=== PATIENT | female | born 2005 | race Caucasian/White ===

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

== ENCOUNTER 2025-10-25 11:38 | Emergency (ER) | payer BC, SELFPAY ==
--- OUTSIDE RECORDS SUMMARY | 2025-10-25 11:41 | XMS_ITS | Clinical Summary ---
Author Organization [facility] Address [address] [place] [id number] Care Team Providers Care Nurse First Assist Name Role Phone dA Alvarado MD, Joe Primary Care Provider [phone] Allergies No known active allergies Medications escitalopram 20 MG tablet Take 20 mg by mouth daily. 04/20/2021 Active VYVANSE 50 MG capsule 06/08/2021 Active norethindrone 5 MG tablet Take 5 mg by mouth daily. 05/17/2021 Active Family History Medical History Relation Comments No Known Problems Father No Known Problems Mother Relation Status Comments Father Alive Mother Alive Social History Tobacco Use Types Packs/Day Years Used Date Smoking Tobacco: Never Smokeless Tobacco: Never Alcohol Use Standard Drinks/Week Comments Not Currently 0 (1 standard drink = 0.6 oz pur e alcohol) Comments No Sex and Gender Information Value Date Recorded Sex Assigned at Not on file Legal Sex Female 7:52 PM CDT Gender Identity Not on file Sexual Orientation Not on file Last Filed Vital Signs Vital Sign Reading Time Taken Comments Blood Pressure 128/78 06/23/2021 8:00 PM CDT Pulse 103 06/23/2021 8:00 PM CDT Temperature 36.3 C (97.3 F) 06/23/2021 8:00 PM CDT Respiratory Rate 20 06/23/2021 8:00 PM CDT Oxygen Saturation 96% 06/23/2021 8:00 PM CDT Inhaled Oxygen Concentration - - Weight 98.9 kg (218 lb) 06/23/2021 8:00 PM CDT Height 160 cm (5' 3) 06/23/2021 8:00 PM CDT Body Mass Index 38.62 06/23/2021 8:00 PM CDT Plan of Treatment Health Maintenance Due Date Last Done Comments Annual Physical 2008 HPV Vaccines (1 - 3-dose series) 2020 Meningococcal B Vaccine (1 o f 2 - Standard) 2021 Hepatitis C 2023 DTaP, Tdap and Td Vaccines ( 1 - Tdap) 2024 Hepatitis B Vaccines (1 of 3 - 19+ 3-dose series) 2024 COVID-19 Vaccine (3 - 2024-2 6 season) 2025 05/23/2021, 04/14/2021 Influenza Adult (#1) 2025 Hepatitis A Vaccines Aged Out No long er eligible based on patient's age to complete this topic Meningococcal Vaccine Aged Out No ashlyn reina eligible based on patient's age to complete this topic Pneumococcal Vaccine: Pediatrics (0 to 5 Years) and At-Risk Patients (6 to 49 Years) Aged Out No longer eligible b ased on patient's age to complete this topic RSV Immunizations Under 20 Months Aged Out No longer eligible b ased on patient's age to complete this topic Insurance [facility] [place] [address] [facility] Care Teams Nurse First Assist Relationship Specialty Start Date End Date Joe Duong MD [address] [facility] [address] [place] [id number] PCP - General PEDIATRICS 06/23/21
--- OUTSIDE RECORDS SUMMARY | 2025-10-25 11:41 | XMS_ITS | Clinical Summary ---
Author Organization [facility] Address [address] [place] [address] Care Team Providers Care Motor Vehicle Or Caravan Salesperson Name Role Phone Liz Hill Primary Care Provider [phone] Allergies Active Allergy Reactions Criticality Noted Date Comments Lactose Diarrhea,Vomiting Low 07/25/2019 Medications hydrOXYzine (ATARAX) 10 mg tablet Take 3 tablets (30 mg total) by mouth daily 2 Active sertraline (ZOLOFT) 100 mg tablet Take 2 tablets (200 mg total) by mouth daily 2 Active prazosin (MINIPRESS) 2 mg capsule Take 1 capsule (2 mg total) by mouth nightly Active atomoxetine (STRATTERA) 25 mg capsule Take 1 capsule (25 mg total) by mouth daily 4 Active UNABLE TO FIND Take 1 each by mouth daily 1Med Name: OLIVER Multi Pro Active ferrous sulfate 325 mg (65 mg of elemental iron) tablet TAKE 1 TABLET BY MOUTH EVERY MORNING EVERY SUNDAY, SUNDAY, SUNDAY MORNINGS 60 tablet 5 Active Additional Information Patient not taking.Reported on 04/28/2025 drospirenone, contraceptive, (Slynd) tablet tabletIndications :Menstrual suppression,Encou nter for surveillance of contraceptive pills Take 1 each (4 mg total) by mouth daily 84 tablet 4 5 Active Active Problems Problem Noted Date Diagnosed Date Microcytic anemia 08/18/2024 Assessment & Plan (08/18/2024 2:54 PM CDT): Chronic. Patient unaware of diagnosis. Possible etiologies include iron- deficiency anemia, other. She does not have menstrual cycles currently. - iron studies ordered, further management pending results Attention deficit hyperactiv ity disorder (ADHD), predominantly inattentive type 08/18/2024 Assessment & Plan (08/18/2024 2:54 PM CDT): Chronic. Continue to follow with psychiatry who manages Strattera. Anxiety and depression 08/18/2024 Assessment & Plan (08/18/2024 2:55 PM CDT): Chronic. Stable. Continue to follow with psychiatry who manages sertraline and hydroxyzine Class 3 severe obesity due t o excess calories without serious comorbidity with body mass index (BMI) of 40.0 to 44.9 in adult 08/18/2024 Assessment & Plan (08/18/2024 2:54 PM CDT): BMI Follow-up includes: exercise counseling. Resolved Problems Problem Noted Date Diagnosed Date Resolved Date Thyroid activity decreased 04/07/2014 0 08/18/2024 Immunizations Immunization Administration Dates Next Due DTaP, Unspecified 05/17/2015,06/27/2014,03/18/20 10 HPV, Unspecified 07/20/2020,05/30/2019 Hep A, Unspecified 07/20/2020,05/30/2019 Hep B, Unspecified 05/23/2016,05/17/2015, 014 Influenza, Quadrivalent, Spl it, Intramuscular 08/30/2022 Influenza, Quadrivalent, Spl it, Preservative Free, Intramuscular 08/27/2023 Influenza, Trivalent, Preser vative Free, Intramuscular 08/18/2024 Influenza, Unspecified 09/02/2021,2019,08/30/2019,08/23 MMR 03/18/2010 MMRV 06/27/2014 Meningococcal ACWY, Unspecified 09/02/2021,05/23 Polio, Unspecified 05/17/2015,06/27/2014, 010 Tdap 05/23/2016 Varicella 03/18/2010 Medical History Medical History Date Comments ADHD (attention deficit hyperactivity disorder) Anxiety Thyroid activity decreased 04/07/2014 Family History Medical History Relation Name Comments Murdered Mother Diabetes Other Hypertension Other Diabetes Paternal Grandfather Lung cancer Paternal Grandmother Relation Name Status Comments Brother 1 Alive Brother 2 Alive Father Unknown Maternal Grandfather Unknown Maternal Grandmother Unknown Mother Other Paternal Grandfather Unknown Paternal Grandmother Unknown Social History Tobacco Use Types Packs/Day Years Used Date Smoking Tobacco: Never Smokeless Tobacco: Never Tobacco Cessation:Counseling Given: Not Answered Alcohol Use Standard Drinks/Week Comments Never 0 (1 standard drink = 0.6 oz pur e alcohol) AUDIT-C Answer Date Recorded Q1: How often do you have a drink containing alcohol? Never 08/18/2024 Q2: How many drinks containi ng alcohol do you have on a typical day when you are drinking? Patient does not drink Q3: How often do you have si x or more drinks on one occasion? Never 08/18/2024 PHQ-2 Answer Date Recorded PHQ-2 Total Score (If total score is 3 or more points, staff should administer the PHQ-9) 2 08/18/2024 PHQ-9 Answer Date Recorded PHQ-9 Total Score 9 08/18/2024 Personal Safety Answer Date Recorded Have you ever been in or are you currently in a harmful physical or emotional relationship or is someone making you feel afraid or unsafe? Denies 06/20/2024 Comments No Sex and Gender Information Value Date Recorded Sex Assigned at Not on file Legal Sex Female 10:52 AM MAT WEAVER Gender Identity Not on file Sexual Orientation Not on file Obstetrics History Para Term AB IAB SAB Ectopic Multiple Livin g Live Births 0 0 0 0 0 0 0 0 0 0 0 Last Filed Vital Signs Vital Sign Reading Time Taken Comments Blood Pressure 123/77 04/28/2025 8:41 AM CDT Pulse 73 04/28/2025 8:41 AM CDT Temperature 36.1 C (97 F) 08/18/2024 12:49 PM CDT Respiratory Rate 16 08/18/2024 12:49 PM CDT Oxygen Saturation 96% 08/18/2024 12:49 PM CDT Inhaled Oxygen Concentration - - Weight 109 kg (240 lb 4.8 oz) 04/28/2025 8:41 AM CDT Height 160 cm (5' 3) 04/28/2025 8:41 AM CDT Body Mass Index 42.57 04/28/2025 8:41 AM CDT Plan of Treatment Health Maintenance Due Date Last Done Comments Chlamydia and Gonorrhea (GC/CT) Screening 2005 Hepatitis C Screening 2005 Meningococcal B Vaccine (1 of 2 - Standard) 2021 Regular Well Visit/Exam 18-64 08/28/2024 08/28/2023 Covid-19 Vaccine ( season) 2025 11/26/2021, 05/23/2021, 04/14/2021 Influenza Vaccine (#1) 2025 , 08/27/2023, 08/30/2022, Additional history exists Depression Screening 08/18/2025 08/18/2024, 08/18/20 24 DTaP/Tdap/Td Vaccine (5 - Td or Tdap) 05/23/2026 05/23/2016, 05/17/2015, 06/27/2014, Additional history exists Varicella Vaccines Completed 06/27/2014, 03/18/2010 Hepatitis B Screening Completed 05/23/2016 , 05/17/2015, 06/27/2014 HPV Vaccines Completed 07/20/2020, 05/30/2019 Meningococcal Vaccine Completed 09/02/2021, 016 Pneumococcal vaccine <65 Aged Out No longer eligible based on patient's age to complete this topic Insurance [facility] Care Teams Motor Vehicle Or Caravan Salesperson Relationship Specialty Start Date End Date Liz Hill [place] [facility] [address] [place] [address] PCP - General Family Medicine 08/18/24
[2025-10-25 11:48] VITALS: BP 147/64; PULSE 56; RESP 16; TEMP 36.7; O2SAT 100
--- NOTE | 2025-10-25 11:58 | ED_ITS ---
HPI - Nausea/Vomiting/Diarrhea General Chief complaint: Nausea/Vomiting/Diarrhea Stated complaint: n/v Time Seen by Provider: 10/25/25 11:45 Source: patient and RN notes reviewed Mode of arrival: ambulatory Limitations: no limitations History of Present Illness HPI Narrative: 20-year-old female presents with concern for nausea, vomiting, stomach ache and diarrhea. She reports she has had symptoms since , so for little over a week. Reports she went to an urgent care yesterday and was given IV fluids and advised to go to the emergency room. Reports she was incontinent of urine on the way to the emergency room so she went home instead. She took Zofran this morning but later vomited. She denies dysuria, frequency, urgency. She reports her low back hurts. MD elicited complaint: nausea, vomiting and diarrhea Related Data Home Medications ?Medication ?Instructions ?Recorded ?Confirmed ?Last Taken ?Type drospirenone (contraceptive) 4 mg 10/25/25 Unknown H istory (28) tablet (Slynd) ondansetron 4 mg disintegrating mg 10/25/25 Unknown H istory tablet sertraline 100 mg tablet mg 10/25/25 Unknown History Allergies Allergy/AdvReac Type Severity Reaction Status Date / Time No Known Allergies Allergy Verified 10/25/25 11:57 Review of Systems Review of Systems: CONSTITUTIONAL: Reports malaise, chills. Denies sweats or fever. ENT: Denies rhinorrhea, congestion, sinus pain, otalgia or sore throat. CARDIOVASCULAR: Denies chest pain, palpitations, or edema. RESPIRATORY: Denies cough or dyspnea. GASTROINTESTINAL: Reports epigastric abdominal pain, nausea, vomiting, diarrhea GENITOURINARY: Denies dysuria or hematuria. MUSCULOSKELETAL: Denies myalgia. Reports low back pain NEUROLOGIC: Denies headache. All systems reviewed & are unremarkable except as noted in HPI and below PMFSH Comments At time of signature, agree with nursing past medical, surgical, social and family history. There is no relevant family history pertinent to the presenting complaint Exam Narrative: GENERAL: Nontoxic-appearing, well-nourished, and in no acute distress. HEAD: Normocephalic, atraumatic. EYES: PERRLA, conjunctivae clear, and EOMI. ENT: Nares clear, turbinates pink, no rhinorrhea or epistaxis. Mucous membranes moist. NECK: Supple. No lymphadenopathy CHEST: Speaks in full sentences. No respiratory distress. HEART: Regular rate and rhythm. ABDOMEN: Obese. Epigastric tenderness. Bowel sounds present in all four quadrants. SKIN: Warm, dry, no rash. NEURO: Alert and oriented x3. PSYCH: Normal mood and affect Course Course Emergency Course: Patient is aware of, understands and agrees to be transferred to the emergency room. Patient agrees to proceed directly to the emergency department. Portions of this record may have been created with voice recognition software Level of Care: [facility] Visit Vital Signs Vital signs: Vital Signs Temperature 98.1 F 10/25/25 11:48 Pulse Rate 56 L 10/25/25 11:48 Respiratory Rate 16 10/25/25 11:48 Blood Pressure 147/64 H 10/25/25 11:48 Pulse Oximetry 100 10/25/25 11:48 Oxygen Delivery Room Air 10/25/25 11:48 Temperature 98.1 F 10/25/25 11:48 Pulse Rate 56 L 10/25/25 11:48 Respiratory Rate 16 10/25/25 11:48 Blood Pressure 147/64 H 10/25/25 11:48 Pulse Oximetry 100 10/25/25 11:48 Oxygen Delivery Room Air 10/25/25 11:48 MDM Differential Diagnosis Differential Diagnosis: I evaluated this patient in the [facility]. History is obtained from patient who is an independent historian and physical exam was performed.? Available medical records were reviewed. ? Exam findings and relevant testing show no acute concerns or changes; patient is non-toxic appearing and is in no distress. ? Differential diagnostic considerations for nausea/vomiting/diarrhea include gastroenteritis, appendicitis, IBD, intestinal obstruction, clostridium difficile, food poisoning, peritonitis, IBS, dehydration, ischemic bowel, ACS, pancreatitis, drug induced nausea/vomiting. Differential diagnosis and treatment plan were discussed with the patient. Patient agrees with discussion and after shared medical decision making agrees with plan of care. All questions were answered to the patient's satisfaction. Patient is appropriate for outpatient treatment and follow-up. Discharge Plan Discharge Clinical Impression: Nausea vomiting and diarrhea Patient Disposition: Acute Care Hospital Condition: Stable Patient Language: Greek Prescriptions: No Action sertraline 100 mg tablet ondansetron 4 mg tablet,disintegrating Slynd 4 mg (28) tablet Follow-up/Referrals: Doll,Donna A., DO [Primary Care Provider, Family Practice] Time of Disposition: 12:18
[2025-10-25] MEDS: ONDANSETRON HCL ODT 4 MG TABLET SUBLINGUAL (12:18)
[2025-10-25 12:19] LABS: BEDSIDEPREGUCG Negative (Negative)
[2025-10-25 12:19] LABS: EDUAAPPEAR Clear; EDUABILI Negative (Negative); EDUABLOOD Negative (Negative); EDUACOLOR1 Yellow; EDUAGLUCOSE Negative (Negative); EDUAKETONE Negative (Negative); EDUALEUKO Negative (Negative); EDUANITRATE Negative (Negative); EDUAPH 6.5; EDUAPROTEIN 2+ (Negative); EDUASPGRAVITY 1.020; EDUAUROBILI 0.2
== END 2025-10-25 12:17 | disposition short-term general hospital (02) ==
PROVIDERS: Emergency Provider Nurse Practitioner; PCP Family Medicine
DX: R11.2 Nausea with vomiting, unspecified (principal); R19.7 Diarrhea, unspecified; F41.9 Anxiety disorder, unspecified; F32.A Depression, unspecified
CPT/HCPCS: 81003; 81025; 99213; A9270; G0463

== ENCOUNTER 2025-10-26 20:48 | Emergency (ER) | payer BC, SELFPAY ==
--- OUTSIDE RECORDS SUMMARY | 2025-10-25 14:01 | XMS_ITS | Encounter Summary ---
Author Organization [facility] Address [address] [place] [address] Care Team Providers Care Provider Relations Coordinator Name Role Phone Ad Alvarado MD, Joe Primary Care Provider [phone] Reason for Referral * Imaging (Emergency) - New Request Specialty Diagnoses / Procedures Referred By Merly pina Referred To Contact RADIOLOGY Procedures CT ABD+PEL W IV CON ONLY Aaron Sánchez NP [address] [place] [address] Phone: tel: fax: Referral ID Status Reason Start Date Expiration Date V isits Requested Visits Authorized [id number] New Request 10/25/2025 10/25/2026 1 1 STANT FARM OPERATIONS MANAGER Reason for Visit * Reason Comments Vomiting Encounter Details Date Type Department Care Team (Late st Contact Info) Description 10/25/2025 2:01 PM ASSISTANT FARM OPERATIONS MANAGER - 10/25/2025 4:12 PM ASSISTANT FARM OPERATIONS MANAGER Emergency [facility] [place] [address] Elías Smith MD [address] [place] [address] Vomiting Discharge Disposition: Home or Self Care (Routine Discharge) Social History Tobacco Use Types Packs/Day Years Used Date Smoking Tobacco: Never Smokeless Tobacco: Never Alcohol Use Standard Drinks/Week Comments Not Currently 0 (1 standard drink = 0.6 oz pur e alcohol) Comments No Sex and Gender Information Value Date Recorded Sex Assigned at Female 10/25/2025 2:23 PM ASSISTANT FARM OPERATIONS MANAGER Legal Sex Female 7:52 PM CDT Gender Identity Not on file Sexual Orientation Not on file documented as of this encounter Last Filed Vital Signs Vital Sign Reading Time Taken Comments Blood Pressure 134/90 10/25/2025 4:00 PM ASSISTANT FARM OPERATIONS MANAGER Pulse 86 10/25/2025 4:00 PM ASSISTANT FARM OPERATIONS MANAGER Temperature 36.8 C (98.3 F) 10/25/2025 12:50 PM ASSISTANT FARM OPERATIONS MANAGER Respiratory Rate 21 10/25/2025 4:00 PM ASSISTANT FARM OPERATIONS MANAGER Oxygen Saturation 97% 10/25/2025 4:00 PM ASSISTANT FARM OPERATIONS MANAGER Inhaled Oxygen Concentration - - Weight 104.9 kg (231 lb 4.2 oz) 025 12:50 PM ASSISTANT FARM OPERATIONS MANAGER Height 157.5 cm (5' 2) 10/25/2025 12:5 0 PM ASSISTANT FARM OPERATIONS MANAGER Body Mass Index 42.3 10/25/2025 12:50 PM ASSISTANT FARM OPERATIONS MANAGER documented in this encounter Functional Status * Calculated C-SSRS Risk Score (Lifetime/Recent) Answer Date of Assessment Author Status No Risk Indicated 10/25/2025 12:52 PM ASSISTANT FARM OPERATIONS MANAGER Sa ra Светлана Herr RN Active * [place] Suicide Severity Rating Scale (Screener/Recent Self-Report) Question Answer Date of Assessment Author Status 1. Wish to be (Past 1 Month) No 10/25/2025 12:52 PM ASSISTANT FARM OPERATIONS MANAGER Kena Herr RN Act hung 2. Non-Specific Active Suicidal Thoughts (Past 1 Month) No 10/25/2025 12:52 PM ASSISTANT FARM OPERATIONS MANAGER Kena Herr RN Act hung 6. Suicidal Behavior (Lifetime) No 10/25/2025 12:52 PM Kena Peguero RN Act hung documented as of this encounter Discharge Instructions * Attachments The following attachments cannot be sent through Care Everywhere. * Nausea and vomiting in adults (Latvian) documented in this encounter Medications at Time of Discharge metoclopramide (REGLAN) 10 MG tablet Take 1 tablet (10 mg total) by mouth 3 (three) times daily as needed (nausea/vomit ing). 30 tablet 10/25/2025 11/04/2025 escitalopram 20 MG tablet Take 20 mg by mouth daily. 04/20/2021 norethindrone 5 MG tablet Take 5 mg by mouth daily. 05/17/2021 VYVANSE 50 MG capsule 06/08/2021 documented as of this encounter ED Notes * Merlyn Shay, Nurse Laundry Route Driver II - 10/25/2025 4:09 PM CST Provider discussed today's findings with the patient/family. The patient has been given informationregarding their treatment, follow up and concerning symptoms for which they should seek urgent or emergent attention. All questions answered. Pt ambulated out of ED with all personal belongings. IV d/c, vitals stable. Cosigned by Ember Miles RN at 10/25/2025 4:12 PM ASSISTANT FARM OPERATIONS MANAGER STANT FARM OPERATIONS MANAGER STANT FARM OPERATIONS MANAGER * Elías Smith MD - 10/25/2025 2:09 PM CSTSummary: ED NOTE Chief Complaint Chief Complaint Patient presents with Vomiting History of Present Illness Patient is a 20-year-old female with a past medical history of anxiety and depression who presents with vomiting. She reports that she has been vomiting since . Patient reports approximately 10 episodes of vomiting per day. She has a burning epigastric pain that is intermittent. Nothingis better or worse. She has chest pain that sharp and feels like the pain is twisting. Nothing makes it better or worse. Has not fevers or chills. No blood in vomit. Does have some diarrhea in the morning. Does use daily marijuana and showers do seem to help with symptoms. Has been seen now twice in urgent care. Medical History ALLERGIES: Review of patient's allergies indicates: No Known Allergies MEDICATIONS: Prior to Admission medications Medication Sig Start Date End Date Taking? Authorizing Provider metoclopramide (REGLAN) 10 MG tablet Take 1 tablet (10 mg total) by mouth 3 (three) times daily as needed (nausea/vomiting). 10/25/25 11/04/25 Yes Elías Smith MD escitalopram 20 MG tablet Take 20 mg by mouth daily. 04/20/21 [facility] norethindrone 5 MG tablet Take 5 mg by mouth daily. 05/17/21 [facility] VYVANSE 50 MG capsule 06/08/21 [facility] PAST MEDICAL HISTORY: Past Medical History[1] PAST SURGICAL HISTORY: Past Surgical History[2] FAMILY HISTORY: Family History[3] SOCIAL HISTORY: Social History[4] Review of Systems Review of Systems Constitutional: Negative for activity change, chills and fever. Respiratory: Negative for cough and shortness of breath. Cardiovascular: Positive for chest pain. Gastrointestinal: Positive for abdominal pain, nausea and vomiting. Negative for diarrhea. Skin: Negative for rash. Neurological: Negative for headaches. Physical Exam Filed Vitals: 10/25/25 1250 10/25/25 1430 BP: (!) 154/96 134/75 Pulse: 72 70 Resp: 18 12 Temp: 98.3 ??F (36.8 ??C) TempSrc: Oral SpO2: 95% 98% Weight: 104.9 kg (231 lb 4.2 oz) Height: 1.575 m (5' 2) Physical Exam Constitutional: General: She is not in acute distress. Appearance: Normal appearance. Cardiovascular: Rate and Rhythm: Normal rate and regular rhythm. Heart sounds: No murmur heard. No gallop. Pulmonary: Effort: Pulmonary effort is normal. No respiratory distress. Breath sounds: No wheezing or rales. Abdominal: General: There is no distension. Tenderness: There is no abdominal tenderness. There is no guarding. Skin: General: Skin is warm and dry. Capillary Refill: Capillary refill takes less than 2 seconds. Neurological: Mental Status: She is alert and oriented to person, place, and time. Mental status is at baseline. Diagnostic Studies / Procedures ELECTROCARDIOGRAMS: Results for orders placed or performed during the hospital encounter of 10/25/25 ECG 12 lead Result Value Ref Range ECG QT 419 ECG QTC [address] Test Date: 2025-10-25 Pat Name: LORENA SINGH Department: 41 Room: Gender: Female Stock Parts Inspector: [id number] : 2005 Requested By: AARON SÁNCHEZ Order Number: [id number] Reading MD: Measurements Intervals [place] Rate: 63 P: 34 WV: 130 QRS: 55 QRSD: 121 T: 25 QT: 419 QTc: 431 Interpretive Statements SINUS RHYTHM No previous ECG available for comparison Other ischemic changes, not STEMI Preliminary EKG Interpretation by Elías Smith M.D. LABORATORY STUDIES: Results for orders placed or performed during the hospital encounter of 10/25/25 CBC W/DIFF AUTOMATED Result Value Ref Range WBC 12.45 4.5 - 13.0 x10'3/uL RBC 4.79 4.20 - 5.40 x10'6/uL HGB 12.7 12.0 - 16.0 G/DL HCT 38.4 38.0 - 48.0 % MCV 80.2 (L) 81.0 - 99.0 FL MCH 26.5 (L) 27.0 - 31.0 PG MCHC 33.1 32.0 - 36.0 G/DL RDW 12.9 11.5 - 14.5 % PLT 435 (H) 130 - 400 x10'3/uL MPV 10.9 9.3 - 12.2 FL DIFFERENTIAL TYPE AUTOMATED DIFFERENTIAL NEUTROPHILS % 82.0 % LYMPHOCYTES % 13.4 % MONOCYTES % 3.7 % EOSINOPHILS 0.0 % BASOPHILS 0.3 % IMMATURE GRANS % 0.6 % ABS. NEUTROPHILS 10.20 (H) 1.80 - 8.00 x10'3/uL ABS. LYMPHOCYTES 1.67 1.20 - 5.20 x10'3/uL ABS. MONOCYTES 0.46 0.24 - 0.86 x10'3/uL ABS. EOSINOPHILS 0.00 (L) 0.04 - 0.36 x10'3/uL ABS. BASOPHILS 0.04 0.01 - 0.08 x10'3/uL ABS. IMMATURE GRANULOCYTES 0.08 0.00 - 0.49 x10'3/uL COMPREHENSIVE METABOLIC PANEL Result Value Ref Range GLUCOSE 105 (H) 70 - 99 MG/DL BUN 9 7 - 18 MG/DL CREATININE S/P/B 0.88 0.55 - 1.02 MG/DL SODIUM S/P/B 142 136 - 145 MMOL/L POTASSIUM S/P/B 3.3 (L) 3.5 - 5.1 MMOL/L CHLORIDE S/P/B 110 97 - 115 MMOL/L CO2 23.5 21 - 32 MMOL/L CALCIUM S/P/B 9.5 8.5 - 10.1 MG/DL BILIRUBIN TOTAL S/P/B 0.8 0.2 - 1.2 MG/DL TOTAL PROTEIN S/P/B 8.9 (H) 6.4 - 8.2 G/DL ALBUMIN S/P/B 5.1 (H) 3.4 - 5.0 G/DL AST 14 (L) 15 - 37 U/L ALT 21 14 - 55 U/L ALKALINE PHOSPHATASE S/P/B 71 50 - 136 U/L ANION GAP 8.5 2 - 10 MMOL/L BUN CREATININE RATIO 10.2 6 - 26 A/G RATIO 1.3 1.0 - 2.0 RATIO GFR ESTIMATE >90 >90 ML/MIN/1.73 M2 LIPASE Result Value Ref Range LIPASE 18 13 - 75 UNITS/L URINALYSIS Result Value Ref Range SPECIMEN TYPE URINE CLEAN CATCH COLOR (U) YELLOW TRANSPARENCY CLEAR SPECIFIC GRAVITY (U) 1.029 1.001 - 1.030 U PH 6.5 5.0 - 9.0 LEUKOCYTES (U) NEGATIVE NEGATIVE NITRITES NEGATIVE NEGATIVE PROTEIN RANDOM (U) 30 (H) <30 MG/DL GLUCOSE (U) NORMAL NORMAL MG/DL KETONES MG/DL (U) 10 (A) NEGATIVE MG/DL UROBILINOGEN NORMAL NORMAL MG/DL BILIRUBIN (U) NEGATIVE NEGATIVE MG/DL BLOOD (U) NEGATIVE NEGATIVE MUCUS FEW /LPF WBC/HPF 3 <6 /HPF RBC/HPF 4 <6 /HPF BACTERIA (U) RARE (A) NONE /HPF SQUAMOUS EPITHELIALS RARE /HPF TROPONIN, QUANT Result Value Ref Range TROPONIN I HIGH SENSITIVITY <3 <54 ng/L ECG 12 lead Result Value Ref Range ECG QT 419 ECG QTC 431 POCT urine Result Value Ref Range URINE HCG TEST NEGATIVE NEGATIVE Internal Control: VALID VALID IMAGING STUDIES CT ABD+PEL W IV CON ONLY Final Result by User, [id number] (10/25 [id number]) [facility] [address] [place], [place] [address] CT abdomen and pelvis with contrast: 10/25/2025 3:39 PM INDICATION: 20 years old Femalewith history of Abdominal pain, irretractable nausea vomiting TECHNIQUE: After the administration of 100 cc Isovue 370, intravenously, CT is performed utilizing contiguous 3 mm axial collimation through the abdomen, pelvis. Additionally, multiplanar reformats were obtained from axial source data. A dose lowering technique was used for this procedure, which may include, but is not limited to, dose reduction techniques, automated exposure control, the use of a iterative reconstruction, and ALARA (as low as reasonably achievable)/image gently techniques. COMPARISON: No previous.. FINDINGS: Chest: The base of the chest shows no acute infiltrates. There is no hiatal hernia. There is mild retention of air in the distal esophagus. No effusion. Abdomen: The liver shows mild fatty changes. Borderline size of the liver and spleen with smooth contours and no focal lesions. Gallbladder: No gallstones. Normal wall thickness and no fluid in the gallbladder fossa. No biliary dilatation. Pancreas: Normal size. Homogeneous texture with no focal lesions. Adjacent fat shows no inflammation. No enlarged lymph nodes. Adrenal glands: No masses or nodules. Kidneys: Homogeneous nephrograms. No stones are seen in the kidneys. No hydronephrosis. Along the course of the right ureter there are no stones. In the left ureter no stones. There is no perinephric edema. Urinary bladder: It is not well distended. No abnormal densities. Pelvis: Anteverted uterus. No midline or adnexal mass. No free fluid. Aorta: Normal size. Major branches of the aorta are patent. In the retroperitoneal area there is no mass. There are no enlarged lymph nodes. No lymphadenopathy in the groin. IVC is patent. Mesentery: There is no free air. Smooth peritoneal contours. In the mid abdomen there is no mass. Portal vein is patent. There are mildly prominent lymph nodes within the root of the mesentery and the right lower quadrant with short axis less than 1 cm is. These are probably reactive lymph nodes. Mild inflammation cannot be excluded. There is no mottling or necrotic change or calcifications. GI tract: The stomach is not well distended. There is no enhancement of the stomach wall. Mild retention of fluid and air in the stomach. The small bowel loops are not dilated and there is no thickening of the small bowel. There is nonspecific mild fluid retention in the jejunum. Appendix is seen on the coronal images 41 there is 48. There is an appendicolith in the root of the appendix and small fluid within the appendix. The appendix itself is about 10 mm. There is however no definite adjacent infiltration or stranding of fat to specifically suggest acute appendicitis. Please correlate clinically. Segments of the colon are underdistended. There may be perhaps mild submucosal fat infiltration of unknown acute significance. Subacute inflammation cannot be excluded. The fat planes around the colon are unremarkable. In the abdominal wall there is no mass. The osseous structures show mild degenerative changes in the lower lumbar spine. In the bony pelvis no acute abnormalities. Impression: 1. There is an appendicolith in the root of the appendix and small fluid within the appendix. The appendix itself is about 10 mm. There is no thickening of the wall or enhancement. There is no definite adjacent infiltration or stranding of fat to specifically suggest acute appendicitis. Please also correlate clinically. 2. There are mildly prominent lymph nodes within the root of the mesentery and the right lower quadrant with short axis less than 1 cm. These are probably reactive lymph nodes. Mild inflammation cannot be excluded. No inflammation in the mesenteric fat. 3. There is nonspecific mild fluid retention in the jejunum. There is no evidence of bowel obstruction.Underdistended colon with suggestion of mild submucosal fat infiltration of unknown acute significance. 4. There is mild retention of fluid and air in the stomach. Ordered By: AARON SÁNCHEZ Interpreted By: Clifford Jimenez MD, 10/25/2025 3:39 PM ED Course / Medical Decision Making Ddx: Cannabinoid hyperemesis syndrome, appendicitis, diverticulitis, pancreatitis Patient is a 20-year-old female with a past medical history of anxiety and depression who presents with vomiting. On arrival vitals are remarkable for mildly elevated blood pressure. On exam patient is overall appearing. Labs are overall reassuring. EKG is without ST segment changes concerning for NM. CT of the abdomen pelvis was without acute pathology. I discussed findings with patient. Patientwas given Haldol as her main symptom is nausea and had significant relief. Will prescribe Reglan. Patient told to come back for new or worsening symptoms and follow-up with PCP. Patient agreeable to plan and was discharged in good condition. Medical Decision Making Amount and/or Complexity of Data Reviewed Labs: ordered. Risk Prescription drug management. Clinical Impression Vomiting (Primary) Abdominal pain Chest pain Disposition: Discharge [1] Past Medical History: Diagnosis Date Anxiety Depression [2] Past Surgical History: Procedure Laterality Date NONE [3] Family History Problem Relation Name Age of Onset No Known Problems Mother No Known Problems Father [4] Social History Tobacco Use Smoking status: Never Smokeless tobacco: Never Vaping Use Vaping status: Never Used Substance Use Topics Alcohol use: Not Currently Drug use: Never Elías Smith MD 10/25/25 1557 STANT FARM OPERATIONS MANAGER * Aaron Sánchez NP - 10/25/2025 12:51 PM CST [place], [place] EMERGENCY DEPARTMENT ENCOUNTER Medical Screening Examination 10/25/25 12:51 PM Chief Complaint : Vomiting HPI : Lorena Singh is a 20-year-old female who presents with complaints of irretractable nausea vomiting. Patient reports that she has been having vomiting since . Reports that she has been seen at outside urgent care twice. Yesterday was given IV fluids and Zofran. Today went back and was given Zofran. Continues to have nausea but Vital Signs: Filed Vitals: 10/25/25 1250 BP: (!) 154/96 Pulse: 72 Resp: 18 Temp: 98.3 ??F (36.8 ??C) TempSrc: Oral SpO2: 95% Weight: 104.9 kg (231 lb 4.2 oz) Height: 1.575 m (5' 2) Physical exam: A brief physical exam was completed to facilitate/expedite patient care. Plan: Necessary labs/imaging/medications ordered to initiate pt care. Aaron Sánchez NP 10/25/25 1251 Cosigned by Aide Bridges MD at 10/25/2025 1:21 PM ASSISTANT FARM OPERATIONS MANAGER STANT FARM OPERATIONS MANAGER STANT FARM OPERATIONS MANAGER * Kena Herr RN - 10/25/2025 12:51 PM CST Pt here with co vomiting since . Pt has been seen at [facility] and received fluids and medications. Today it is not resolved, [facility] sent her to us. STANT FARM OPERATIONS MANAGER documented in this encounter Plan of Treatment Not on file documented as of this encounter Procedures Procedure Name Priority Date/Time Associated Diagnosis Comments CT ABD+PEL W CON STAT 10/25/2025 3:04 PM ASSISTANT FARM OPERATIONS MANAGER POCT URINE (BACK OFFICE) STAT 10/25/2025 2:37 PM ASSISTANT FARM OPERATIONS MANAGER URINALYSIS STAT 10/25/2025 2:26 PM ASSISTANT FARM OPERATIONS MANAGER TROPONIN, QUANT STAT 10/25/2025 2:25 PM ASSISTANT FARM OPERATIONS MANAGER LIPASE STAT 10/25/2025 2:25 PM ASSISTANT FARM OPERATIONS MANAGER COMPREHENSIVE METABOLIC PANEL STAT 10/25/2025 2:25 PM ASSISTANT FARM OPERATIONS MANAGER HC CBC AUTO W/AUTO DIFF STAT 10/25/2025 2:25 PM ASSISTANT FARM OPERATIONS MANAGER ECG 12-LEAD Routine 10/25/2025 2:08 PM ASSISTANT FARM OPERATIONS MANAGER documented in this encounter Results * CT ABD+PEL W IV CON ONLY (10/25/2025 3:04 PM ASSISTANT FARM OPERATIONS MANAGER) Anatomical Region Laterality Modality Abdomen Computed Tomogra phy 10/25/2025 3:39 PM ASSISTANT FARM OPERATIONS MANAGER Impressions 10/25/2025 3:47 PM ASSISTANT FARM OPERATIONS MANAGER Impression: 1. There is an appendicolith in the root of the appendix and small fluid within the appendix. The appendix itself is about 10 mm. There is no thickening of the wall or enhancement. There is no definite adjacent infiltration or stranding of fat to specifically suggest acute appendicitis. Please also correlate clinically. 2. There are mildly prominent lymph nodes within the root of the mesentery and the right lower quadrant with short axis less than 1 cm. These are probably reactive lymph nodes. Mild inflammation cannot be excluded. No inflammation in the mesenteric fat. 3. There is nonspecific mild fluid retention in the jejunum. There is no evidence of bowel obstruction.Underdistended colon with suggestion of mild submucosal fat infiltration of unknown acute significance. 4. There is mild retention of fluid and air in the stomach. Ordered By: AARON SÁNCHEZ Interpreted By: Clifford Jimenez MD, 10/25/2025 3:39 PM Narrative 10/25/2025 3:47 PM ASSISTANT FARM OPERATIONS MANAGER [facility] [address] [place], [place] [address] CT abdomen and pelvis with contrast: 10/25/2025 3:39 PM INDICATION: 20 years old Femalewith history of Abdominal pain, irretractable nausea vomiting TECHNIQUE: After the administration of 100 cc Isovue 370, intravenously, CT is performed utilizing contiguous 3 mm axial collimation through the abdomen, pelvis. Additionally, multiplanar reformats were obtained from axial source data. A dose lowering technique was used for this procedure, which may include, but is not limited to, dose reduction techniques, automated exposure control, the use of a iterative reconstruction, and ALARA (as low as reasonably achievable)/image gently techniques. COMPARISON: No previous.. FINDINGS: Chest: The base of the chest shows no acute infiltrates. There is no hiatal hernia. There is mild retention of air in the distal esophagus. No effusion. Abdomen: The liver shows mild fatty changes. Borderline size of the liver and spleen with smooth contours and no focal lesions. Gallbladder: No gallstones. Normal wall thickness and no fluid in the gallbladder fossa. No biliary dilatation. Pancreas: Normal size. Homogeneous texture with no focal lesions. Adjacent fat shows no inflammation. No enlarged lymph nodes. Adrenal glands: No masses or nodules. Kidneys: Homogeneous nephrograms. No stones are seen in the kidneys. No hydronephrosis. Along the course of the right ureter there are no stones. In the left ureter no stones. There is no perinephric edema. Urinary bladder: It is not well distended. No abnormal densities. Pelvis: Anteverted uterus. No midline or adnexal mass. No free fluid. Aorta: Normal size. Major branches of the aorta are patent. In the retroperitoneal area there is no mass. There are no enlarged lymph nodes. No lymphadenopathy in the groin. IVC is patent. Mesentery: There is no free air. Smooth peritoneal contours. In the mid abdomen there is no mass. Portal vein is patent. There are mildly prominent lymph nodes within the root of the mesentery and the right lower quadrant with short axis less than 1 cm is. These are probably reactive lymph nodes. Mild inflammation cannot be excluded. There is no mottling or necrotic change or calcifications. GI tract: The stomach is not well distended. There is no enhancement of the stomach wall. Mild retention of fluid and air in the stomach. The small bowel loops are not dilated and there is no thickening of the small bowel. There is nonspecific mild fluid retention in the jejunum. Appendix is seen on the coronal images 41 there is 48. There is an appendicolith in the root of the appendix and small fluid within the appendix. The appendix itself is about 10 mm. There is however no definite adjacent infiltration or stranding of fat to specifically suggest acute appendicitis. Please correlate clinically. Segments of the colon are underdistended. There may be perhaps mild submucosal fat infiltration of unknown acute significance. Subacute inflammation cannot be excluded. The fat planes around the colon are unremarkable. In the abdominal wall there is no mass. The osseous structures show mild degenerative changes in the lower lumbar spine. In the bony pelvis no acute abnormalities. Procedure Note Clifford Jimenez MD - 10/25/[address] [address] [address] abdomen and pelvis with contrast: 10/25/2025 3:39 PM INDICATION: 20 years old Femalewith history of Abdominal pain,irretractable nausea vomiting TECHNIQUE: After the administration of 100 cc Isovue 370, intravenously,CT is performed utilizing contiguous 3 mm axial collimation through theabdomen, pelvis. Additionally, multiplanar reformats were obtained fromaxial source data. A dose lowering technique was used for this procedure,which may include, but is not limited to, dose reduction techniques,automated exposure control, the use of a iterative reconstruction, andALARA (as low as reasonably achievable)/image gently techniques. COMPARISON: No previous.. FINDINGS: Chest: The base of the chest shows no acute infiltrates. There is no hiatalhernia. There is mild retention of air in the distal esophagus. Noeffusion. Abdomen: The liver shows mild fatty changes. Borderline size of the liver andspleen with smooth contours and no focal lesions. Gallbladder: No gallstones. Normal wall thickness and no fluid in thegallbladder fossa. No biliary dilatation. Pancreas: Normal size. Homogeneous texture with no focal lesions. Adjacentfat shows no inflammation. No enlarged lymph nodes. Adrenal glands: No masses or nodules. Kidneys: Homogeneous nephrograms. No stones are seen in the kidneys. Nohydronephrosis. Along the course of the right ureter there are no stones.In the left ureter no stones. There is no perinephric edema. Urinary bladder: It is not well distended. No abnormal densities. Pelvis: Anteverted uterus. No midline or adnexal mass. No free fluid. Aorta: Normal size. Major branches of the aorta are patent. In theretroperitoneal area there is no mass. There are no enlarged lymph nodes.No lymphadenopathy in the groin. IVC is patent. Mesentery: There is no free air. Smooth peritoneal contours. In the midabdomen there is no mass. Portal vein is patent. There are mildlyprominent lymph nodes within the root of the mesentery and the right lowerquadrant with short axis less than 1 cm is. These are probably reactivelymph nodes. Mild inflammation cannot be excluded. There is no mottling ornecrotic change or calcifications. GI tract: The stomach is not well distended. There is no enhancement ofthe stomach wall. Mild retention of fluid and air in the stomach. The small bowel loops are not dilated and there is no thickening of thesmall bowel. There is nonspecific mild fluid retention in the jejunum. Appendix is seen on the coronal images 41 there is 48. There is anappendicolith in the root of the appendix and small fluid within theappendix. The appendix itself is about 10 mm. There is however no definiteadjacent infiltration or stranding of fat to specifically suggest acuteappendicitis. Please correlate clinically. Segments of the colon are underdistended. There may be perhaps mildsubmucosal fat infiltration of unknown acute significance. Subacuteinflammation cannot be excluded. The fat planes around the colon areunremarkable. In the abdominal wall there is no mass. The osseous structures show mild degenerative changes in the lower lumbarspine. In the bony pelvis no acute abnormalities. Impression: 1. There is an appendicolith in the root of the appendix and small fluidwithin the appendix. The appendix itself is about 10 mm. There is nothickening of the wall or enhancement. There is no definite adjacentinfiltration or stranding of fat to specifically suggest acuteappendicitis. Please also correlate clinically. 2. There are mildly prominent lymph nodes within the root of themesentery and the right lower quadrant with short axis less than 1 cm.These are probably reactive lymph nodes. Mild inflammation cannot beexcluded. No inflammation in the mesenteric fat. 3. There is nonspecific mild fluid retention in the jejunum. There is noevidence of bowel obstruction.Underdistended colon with suggestion of mildsubmucosal fat infiltration of unknown acute significance. 4. There is mild retention of fluid and air in the stomach. Ordered By: AARON SÁNCHEZ Interpreted By: Clifford Jimenez MD, 10/25/2025 3:39 PM Aaron Sánchez PERINATAL TECH CT Final Result * POCT urine (10/25/2025 2:37 PM ASSISTANT FARM OPERATIONS MANAGER) URINE HCG TEST NEGATIVE NEGATIVE Internal Control: VALID VALID URINE URINE SPECIMEN OBTAINED BY CLEAN CATCH PROCEDURE / Unknown 10/25/2025 2:37 PM ASSISTANT FARM OPERATIONS MANAGER us Elías Smith MD POINT OF CARE TEST ORDE RABLES Final Result * (ABNORMAL) URINALYSIS (10/25/2025 2:26 PM ASSISTANT FARM OPERATIONS MANAGER) SPECIMEN TYPE URINE CLEAN CATCH 10/25/2025 2:26 PM ASSISTANT FARM OPERATIONS MANAGER [facility] COLOR (U) YELLOW 10/25/2025 3:04 PM ASSISTANT FARM OPERATIONS MANAGER [facility] TRANSPARENCY CLEAR 10/25/2025 3:04 PM ASSISTANT FARM OPERATIONS MANAGER [facility] SPECIFIC GRAVITY (U) 1.029 1.001 - 1.030 10/25/2025 3:04 PM ASSISTANT FARM OPERATIONS MANAGER [facility] U PH 6.5 5.0 - 9.0 10/25/2025 3:04 PM ASSISTANT FARM OPERATIONS MANAGER [facility] LEUKOCYTES (U) NEGATIVE NEGATIVE 10/25/2025 3:04 PM ASSISTANT FARM OPERATIONS MANAGER [facility] NITRITES NEGATIVE NEGATIVE 10/25/2025 3:04 PM [facility] PROTEIN RANDOM (U) 30(H) <30 MG/DL 10/25/2025 3:04 PM [facility] GLUCOSE (U) NORMAL NORMAL MG/DL 10/25/2025 3:04 PM [facility] KETONES MG/DL (U) 10(A) NEGATIVE MG/DL 10/25/2025 3:04 PM [facility] UROBILINOGEN NORMAL NORMAL MG/DL 10/25/2025 3:04 PM [facility] BILIRUBIN (U) NEGATIVE NEGATIVE MG/DL 10/25/2025 3:04 PM [facility] BLOOD (U) NEGATIVE NEGATIVE 10/25/2025 3:04 PM [facility] MUCUS FEW /LPF 10/25/2025 3:04 PM [facility] WBC/HPF 3 <6 /HPF 10/25/2025 3:04 PM [facility] RBC/HPF 4 <6 /HPF 10/25/2025 3:04 PM [facility] BACTERIA (U) RARE(A) NONE /HPF 10/25/2025 3:04 PM ASSISTANT FARM OPERATIONS MANAGER [facility] SQUAMOUS EPITHELIALS RARE /HPF 10/25/2025 3:04 PM [facility] URINE URINE SPECIMEN OBTAINED BY CLEAN CATCH PROCEDURE / Unknown 10/25/2025 2:26 PM ASSISTANT FARM OPERATIONS MANAGER us Aaron Sánchez PERINATAL TECH URINE ORDERABLES Final Result [facility] [address] [place] [address], * TROPONIN, QUANT (10/25/2025 2:25 PM ASSISTANT FARM OPERATIONS MANAGER) [facility] TROPONIN I HIGH SENSITIVITY <3 <54 ng/L 10/25/2025 3:12 PM ASSISTANT FARM OPERATIONS MANAGER [facility] Comment: HIGH DOSES OF BIOTIN, TROPONIN-SPECIFIC AUTOANTIBODIES, AND ANTIBODY THERAPY CONTAINING HAMA MAY INTERFERE WITH THIS TEST RESULT. CORRELATION TO CLINICAL HISTORY AND PRESENTATION RECOMMENDED. BLOOD VENOUS BLOOD SPECIMEN / Unknown 10/25/2025 2:25 PM ASSISTANT FARM OPERATIONS MANAGER Aaron Sánchez NP LABORATORY Final Result [facility] [address] [place] [address], * LIPASE (10/25/2025 2:25 PM ASSISTANT FARM OPERATIONS MANAGER) [facility] LIPASE 18 13 - 75 UNITS/L 10/25/2025 3:44 PM ASSISTANT FARM OPERATIONS MANAGER [facility] BLOOD VENOUS BLOOD SPECIMEN / Unknown 10/25/2025 2:25 PM ASSISTANT FARM OPERATIONS MANAGER Aaron Sánchez NP LABORATORY Final Result [facility] [address] [place] [address], * (ABNORMAL) COMPREHENSIVE METABOLIC PANEL (10/25/2025 2:25 PM ASSISTANT FARM OPERATIONS MANAGER) [facility] GLUCOSE 105(H) 70 - 99 MG/DL 10/25/2025 3:44 PM ASSISTANT FARM OPERATIONS MANAGER [facility] BUN 9 7 - 18 MG/DL 10/25/2025 3:44 PM ASSISTANT FARM OPERATIONS MANAGER [facility] CREATININE S/P/B 0.88 0.55 - 1.02 MG/DL 10/25/2025 3:44 PM [facility] SODIUM S/P/B 142 136 - 145 MMOL/L 10/25/2025 3:44 PM [facility] POTASSIUM S/P/B 3.3(L) 3.5 - 5.1 MMOL/L 10/25/2025 3:44 PM [facility] CHLORIDE S/P/B 110 97 - 115 MMOL/L 10/25/2025 3:44 PM [facility] CO2 23.5 21 - 32 MMOL/L 10/25/2025 3:44 PM [facility] CALCIUM S/P/B 9.5 8.5 - 10.1 MG/DL 10/25/2025 3:44 PM [facility] BILIRUBIN TOTAL S/P/B 0.8 0.2 - 1.2 MG/DL 10/25/2025 3:44 PM [facility] Comment: THIS ASSAY IS NOT RECOMMENDED FOR PATIENTS UNDERGOING TREATMENT WITH ELTROMBOPAG DUE TO THE POTENTIAL FOR FALSELY ELEVATED RESULTS. TOTAL PROTEIN S/P/B 8.9(H) 6.4 - 8.2 G/DL 10/25/2025 3:44 PM [facility] ALBUMIN S/P/B 5.1(H) 3.4 - 5.0 G/DL 10/25/2025 3:44 PM [facility] AST 14(L) 15 - 37 U/L 10/25/2025 3:44 PM [facility] ALT 21 14 - 55 U/L 10/25/2025 3:44 PM [facility] ALKALINE PHOSPHATASE S/P/B 71 50 - 136 U/L 10/25/2025 3:44 PM [facility] ANION GAP 8.5 2 - 10 MMOL/L 10/25/2025 3:44 PM ASSISTANT FARM OPERATIONS MANAGER [facility] BUN CREATININE RATIO 10.2 6 - 26 10/25/2025 3:44 PM ASSISTANT FARM OPERATIONS MANAGER [facility] A/G RATIO 1.3 1.0 - 2.0 RATIO 10/25/2025 3:44 PM [facility] GFR ESTIMATE >90 >90 ML/MIN/1.7 3 M2 10/25/2025 3:44 PM [facility] Comment: NOTE: eGFR is not calculated for patients <18 years of age or gender unknown. This is an estimated GFR calculation using the new CKD EPI creatinine equation without race and so does not require a correction factor for race. This estimated GFR should not be used for calculating drug doses. BLOOD VENOUS BLOOD SPECIMEN / Unknown 10/25/2025 2:25 PM ASSISTANT FARM OPERATIONS MANAGER Aaron Sánchez NP LABORATORY Final Result [facility] [address] [place] [address], [place] [phone] * (ABNORMAL) CBC W/DIFF AUTOMATED (10/25/2025 2:25 PM ASSISTANT FARM OPERATIONS MANAGER) WBC 12.45 4.5 - 13.0 x10'3/uL 10/25/2025 3:03 PM [facility] RBC 4.79 4.20 - 5.40 x10'6/uL 10/25/2025 3:03 PM [facility] HGB 12.7 12.0 - 16.0 G/DL 10/25/2025 3:03 PM [facility] HCT 38.4 38.0 - 48.0 % 10/25/2025 3:03 PM [facility] MCV 80.2(L) 81.0 - 99.0 FL 10/25/2025 3:03 PM [facility] MCH 26.5(L) 27.0 - 31.0 PG 10/25/2025 3:03 PM [facility] MCHC 33.1 32.0 - 36.0 G/DL 10/25/2025 3:03 PM [facility] RDW 12.9 11.5 - 14.5 % 10/25/2025 3:03 PM [facility] PLT 435(H) 130 - 400 x10'3/uL 10/25/2025 3:03 PM [facility] MPV 10.9 9.3 - 12.2 FL 10/25/2025 3:03 PM [facility] DIFFERENTIAL TYPE AUTOMATED DIFFERENTIAL 10/25/2025 3:03 PM [facility] NEUTROPHILS % 82.0 % 10/25/2025 3:03 PM [facility] LYMPHOCYTES % 13.4 % 10/25/2025 3:03 PM [facility] MONOCYTES % 3.7 % 10/25/2025 3:03 PM [facility] EOSINOPHILS 0.0 % 10/25/2025 3:03 PM [facility] BASOPHILS 0.3 % 10/25/2025 3:03 PM [facility] IMMATURE GRANS % 0.6 % 10/25/20 3:03 PM [facility] ABS. NEUTROPHILS 10.20(H) 1.80 - 8.00 x10'3/uL 10/25/2025 3:03 PM [facility] ABS. LYMPHOCYTES 1.67 1.20 - 5.20 x10'3/uL 10/25/2025 3:03 PM [facility] ABS. MONOCYTES 0.46 0.24 - 0.86 x10'3/uL 10/25/2025 3:03 PM ASSISTANT FARM OPERATIONS MANAGER [facility] ABS. EOSINOPHILS 0.00(L) 0.04 - 0.36 x10'3/uL 10/25/2025 3:03 PM ASSISTANT FARM OPERATIONS MANAGER [facility] ABS. BASOPHILS 0.04 0.01 - 0.08 x10'3/uL 10/25/2025 3:03 PM ASSISTANT FARM OPERATIONS MANAGER [facility] ABS. IMMATURE GRANULOCYTES 0.08 0.00 - 0.49 x10'3/uL 10/25/2025 3:03 PM ASSISTANT FARM OPERATIONS MANAGER [facility] BLOOD VENOUS BLOOD SPECIMEN / Unknown 10/25/2025 2:25 PM ASSISTANT FARM OPERATIONS MANAGER Aaron Sánchez PERINATAL TECH LABORATORY Final Result [facility] [address] [place] [address], * ECG 12 lead (10/25/2025 2:08 PM ASSISTANT FARM OPERATIONS MANAGER) ECG QT 419 [facility] ECG QTC 431 [facility] 10/25/2025 2:08 PM ASSISTANT FARM OPERATIONS MANAGER Narrative [facility] - 10/25/2025 2:12 PM ASSISTANT FARM OPERATIONS MANAGER [address] Test Date: 2025-10-25 Pat Name: LORENA SINGH Department: 41 Room: Gender: Female Stock Parts Inspector: [id number] : 2005 Requested By: AARON SÁNCHEZ Order Number: [id number] Reading MD: Measurements Intervals [place] Rate: 63 P: 34 WV: 130 QRS: 55 QRSD: 121 T: 25 QT: 419 QTc: 431 Interpretive Statements SINUS RHYTHM No previous ECG available for comparison Other ischemic changes, not STEMI Preliminary EKG Interpretation by Elías Smith M.D. Procedure Note Md, Generic Conversion, MD - 10/25/[address]25 [facility] [address] Test Date: 2025-10-25 Pat Name: LORENA SINGH Department: 41 Room: Gender: Female Stock Parts Inspector: [id number] : 2005 Requested By: AARON SÁNCHEZ Order Number: [id number] Reading MD: Measurements Intervals [place] Rate: 63 P: 34 WV: 130 QRS: 55 QRSD: 121 T: 25 QT: 419 QTc: 431 Interpretive Statements SINUS RHYTHM No previous ECG available for comparison Other ischemic changes, not STEMI Preliminary EKG Interpretation by Elías Smith M.D. us Aaron Sánchez PERINATAL TECH ECG ORDERABLES Final Result [facility] documented in this encounter Visit Diagnoses Diagnosis Vomiting- Primary Vomiting alone Abdominal pain Abdominal pain, unspecified site Chest pain documented in this encounter Administered Medications Inactive Administered Medications - up to 3 most recent administrations Medication Order MAR Action Action Date Dose Rate Site diphenhydrAMINE (BENADRYL) injection 25 mg 25 mg, Intravenous, Once, 1 dose, On 10/25/25 at 1400, For IV administration, give no faster than 25 mg/min. Given 10/25/2025 2:32 PM ASSISTANT FARM OPERATIONS MANAGER 25 mg haloperidol lactate (HALDOL) injection 2 mg 2 mg, Intravenous, Once, 1 dose, On 10/25/25 at 1430, IF giving IV, do not give faster than 5 mg/min IV; observe for hypotension. IM Administration: Gluteal muscle is recommended, may use deltoid as alternative. Given 10/25/2025 2:31 PM ASSISTANT FARM OPERATIONS MANAGER 2 mg iopamidol (ISOVUE-370) 76 % injection 100 mL 100 mL, Intravenous, IMG once as needed, Contrast, 1 dose, Starting on 10/25/25 at 1504, Until 10/25/25 at 1504 Given 10/25/2025 3:04 PM ASSISTANT FARM OPERATIONS MANAGER 100 mLs normal saline 0.9 % flush 5-10 mL 5-10 mL, Intravenous, 2 times daily, First dose on Sun10/26/25 at 0100, Until Discontinued normal saline 0.9 % flush 5-10 mL 5-10 mL, Intracatheter, As needed, Line care, Starting on Sun10/25/25 at 1252, Until Sun10/25/25 at 1812 sodium chloride 0.9% bolus infusion 1,000 mL 1,000 mL, Intravenous, Administer over 60 Minutes, Once, 1 dose, On Sun10/25/25 at 1300 Restarted 10/25/2025 3:05 PM ASSISTANT FARM OPERATIONS MANAGER 999 mL/hr Restarted 10/25/2025 3:02 PM ASSISTANT FARM OPERATIONS MANAGER 999 mL/hr Restarted 10/25/2025 2:34 PM ASSISTANT FARM OPERATIONS MANAGER 999 mL/hr sodium chloride 0.9% infusion at 2-10 mL/hr, Intravenous, PRN, Infuse as needed for KVO, Starting on Sun10/25/25 at 1252, Until Sun10/25/25 at 1812 documented in this encounter Active and Recently Administered Medications Times are shown in ASSISTANT FARM OPERATIONS MANAGER. Scheduled Medication Order 10/23/2025 10/24/2025 10/25/2025 diphenhydrAMINE (BENADRYL) injection 25 mg (COMPLETED) 25 mg, Intravenous, Once, 1 dose, On Sun10/25/25 at 1400, For IV administration, give no faster than 25 mg/min. 1432 (Given - Provid er: Merlyn Shay, Nurse Laundry Route Driver II) haloperidol lactate (HALDOL) injection 2 mg (COMPLETED) 2 mg, Intravenous, Once, 1 dose, On 10/25/25 at 1430, IF giving IV, do not give faster than 5 mg/min IV; observe for hypotension. IM Administration: Gluteal muscle is recommended, may use deltoid as alternative. 1431 (Given - Provid er: Merlyn Shay, Nurse Laundry Route Driver II) normal saline 0.9 % flush 5-10 mL(Linked Group 1) 5-10 mL, Intravenous, 2 times daily, First dose on Sun10/26/25 at 0100, Until Discontinued sodium chloride 0.9% bolus infusion 1,000 mL (COMPLETED) 1,000 mL, Intravenous, Administer over 60 Minutes, Once, 1 dose, On 10/25/25 at 1300 1431 (New Bag - Prov ider: Merlyn Shay, Nurse Laundry Route Driver II)1432 (Paused - Provider: Ember Miles RN)1434 (Restarted - Provider: Ember Miles RN)1449 (Paused - Provider: Ember Miles RN)1502 (Restarted - Provider: Ember Miles RN)1503 (Paused - Provider: Ember Miles RN)1505 (Restarted - Provider: Ember Miles RN)1547 (Infusion Stop Time - Provider: Ember Miles RN) PRN Medication Order 10/23/2025 10/24/2025 10/25/2025 iopamidol (ISOVUE-370) 76 % injection 100 mL (COMPLETED) 100 mL, Intravenous, IMG once as needed, Contrast, 1 dose, Starting on Sun10/25/25 at 1504, Until 10/25/25 at 1504 1504 (Given - Provid er: Donna Cotter, RTR) normal saline 0.9 % flush 5-10 mL(Linked Group 1) 5-10 mL, Intracatheter, As needed, Line care, Starting on Sun10/25/25 at 1252, Until Sun10/25/25 at 1812 sodium chloride 0.9% infusion(Linked Group 1) at 2-10 mL/hr, Intravenous, PRN, Infuse as needed for KVO, Starting on Sun10/25/25 at 1252, Until 10/25/25 at 1812 Linked Groups Order Group 1: Insert peripheral IV (CANCELED) Routine, Continuous, Starting on Sun10/25/25 at 1253, Until Specified And normal saline 0.9 % flush 5-10 mLJump to med 5-10 mL, Intravenous, 2 times daily, First dose on Sun10/26/25 at 0100, Until Discontinued And normal saline 0.9 % flush 5-10 mLJump to med 5-10 mL, Intracatheter, As needed, Line care, Starting on 10/25/25 at 1252, Until 10/25/25 at 1812 And sodium chloride 0.9% infusionJump to med at 2-10 mL/hr, Intravenous, PRN, Infuse as needed for KVO, Starting on 10/25/25 at 1252, Until 10/25/25 at 1812 documented in this encounter Care Teams Provider Relations Coordinator Relationship Specialty Start Date End Date Joe Duong MD [address] [place] [address] PCP - General PEDIATRICS 06/23/21 documented as of this encounter
--- OUTSIDE RECORDS SUMMARY | 2025-10-26 20:50 | XMS_ITS | Clinical Summary ---
Author Organization [facility] Address [address] [place] [address] Care Team Providers Care Pneumatic Tube Operator Name Role Phone Liz Hill Primary Care Provider [phone] Allergies Active Allergy Reactions Criticality Noted Date [...] Date Thyroid activity decreased 04/07/2014 0 08/18/2024 Encounters Date Type Department Care Team Description 10/26/2025 Nurse Triage [facility] Family Medicine [address] [phone] Liz Hill PA from Last 3 Months Immunizations Immunization Administration Dates Next Due DTaP, [...] on file Legal Sex Female 10:52 AM DIRECTOR OF STATE Gender Identity Not on file Sexual Orientation [...] 04/28/2025 8:41 AM CDT Plan of Treatment Upcoming Encounters Date Type Department Care Team (Late st Contact Info) Description 10/28/2025 9:30 AM DIRECTOR OF STATE Office Visit [facility] Family Medicine [address] [phone] Samara Clancy, DEAN OF ADMISSIONS [address] [address] Health Maintenance Due Date Last Done Comments [...] patient's age to complete this topic Insurance [facility] [place] [id number] [facility] [place] [phone] Care Teams Pneumatic Tube Operator Relationship Specialty Start Date End Date Liz Hill PA [address] [place] [address] PCP - General Family Medicine 08/18/24
--- OUTSIDE RECORDS SUMMARY | 2025-10-26 20:51 | XMS_ITS | Encounter Summary ---
Author Organization [facility] Address [address] [place] [id number] Care Team Providers Care Towel Cabinet Repairer Name Role Phone Liz Hill Primary Care Provider [phone] Reason for Visit * Reason Onset Date Comments Dizziness 10/26/2025 Encounter Details Date Type Department Care Team (Late st Contact Info) Description 10/26/2025 Nurse Triage [facility] Family Medicine [address] [phone] Liz Hill PA [address] [address] Social History Tobacco Use Types Packs/Day Years Used Date Smoking Tobacco: Never Smokeless Tobacco: Never Alcohol Use Standard Drinks/Week Comments Never 0 [...] on file Legal Sex Female 10:52 AM CHIEF DIGITAL OFFICER Gender Identity Not on file Sexual Orientation Not on file documented as of this encounter Miscellaneous Notes * Telephone Encounter - Oksana Cotter LPN - 10/26/2025 2:38 PM CST Per chart, patient scheduled F DIGITAL OFFICER * Telephone Encounter - Sabina Coleman RN - 10/26/2025 9:00 AM CST Provider contacted via secure chat for ED disposition consult. Recommendation from provider:Proceedto ED Reason for Conversation Dizziness Background Patients mother reports that patient has been vomiting for 12 days, and unable to keep any fluids down for the last 3 days. Stated that patient had recently started a new med recently that she thought could be the culprit. Even after stopping her medicine, her symptoms have worsened. Patient went to UC and ED, given IV zofran and discharged. Patient directed to proceed to ED after SC with provider. Disposition Go to ED/UCC Now (or to Office With PCP Approval), See More Appropriate Protocol Reason for Disposition Vomiting is main symptom SEVERE vomiting (e.g., 6 or more times/day) (Exception: Patient sounds well, is drinking liquids, does not sound dehydrated, and vomiting has lasted less than 24 hours.) Protocols Used [id number] F DIGITAL OFFICER * Telephone Encounter - Sabina Coleman RN - 10/26/2025 8:42 AM CST Regarding: lightheadedness, dizziness, vomiting and nausea ----- Message from Carly Carroll sent at 10/26/2025 8:33 AM CHIEF DIGITAL OFFICER ----- Symptom Based Call Chief Complaint(s): lightheadedness, dizziness, vomiting and nausea Duration: 12 days What type of symptom(s) is the patient experiencing? Red Flag. Is the patient concerned they are experiencing a medical emergency requiring an ambulance? No Additional Comments: Mom Ela reports patient having lightheadedness, dizziness, vomiting and nausea for 12 days. Patient went Well now in [place] [facility] on 10/24/25, then 05 to [facility], then to [facility] 10/25/25 was given Zofran. Patient still experiencing symptoms vomiting all through the night and morning. Does message need to be routed? Yes-Action Needed F DIGITAL OFFICER documented in this encounter Plan of Treatment Upcoming Encounters Date Type Department Care Team (Late st Contact Info) Description 10/28/2025 9:30 AM CHIEF DIGITAL OFFICER Office Visit [facility] Family Medicine [address] [place] [phone] Samara Clancy NP [address] [facility] [address] [place], [place] [phone] documented as of this encounter Visit Diagnoses Not on filedocumented in this encounter Care Teams Towel Cabinet Repairer Relationship Specialty Start Date End Date Liz Hill PA [address] [place] [phone] PCP - General Family Medicine 08/18/24 documented as of this encounter
--- OUTSIDE RECORDS SUMMARY | 2025-10-26 20:51 | XMS_ITS | Data Portability ---
[facility] Address [address] [place] [address] Assessment Encounter Date Assessment Date Assessment LastModified by Organization Details LastModified Time 10/17/2022 10/17/2022 Lorena Duff is a 17 year old F presenting for cold symptoms. Based on history and exam, Lorena most likely has a viral URI. COVID was considered, however home testing was negative. Flu testing was declined due to her symptoms being present for greater than 48 hours. AOM was considered, however ear exam was reassuring. Recommended supportive care. [email or web address] Not available 10/17/2022 13:03:02 Plan of Treatment Reminders Order Date Submit Date Provider Last Modified By Organization Details Last Modified Time Details Appointments None recorded. Lab CBC w/ manual diff 2021 [email or web address] [employer] [facility], [address], [facility], [place], [address], 17:43:14 TSH + free T4, serum 2021 022 [email or web address], [address], [facility], [place], [address], 17:43:14 iron + total iron-roib ng capacity (TIBC), serum 2021 022 [email or web address] [employer] [facility], [address], [facility], [place], [address], 17:44:04 Referral None recorded. Procedures None recorded. Surgeries None recorded. Imaging None recorded. Medication Orders None recorded. Patient TargetsNo targets recorded. Patient InstructionsNo instructions recorded. Reason for Referral None Reported. Problems Name Problem SNOMED Code Status Onset Date Resolution Date Notes Provider Name and Address Organization Details Recorded Time Influenza 5454261 Completed 202110/29/2022 Removal Reason: Flu A + per ED Racquel Witt RN null, [place] - [facility] 11:58:44 Problem Notes None recorded. Medical Equipment None Reported. Allergies No known drug allergies Medications Name Sig Start Date Stop Date Status Note LastModified by Organization Details LastModified Time prazosin 1 mg capsule TAKE 1 CAPSULE BY MOUTH DAILY AT BEDTIME 08/29 completed Not Available Not Available Not Available sertraline 100 mg tablet TAKE 1 AND 1/2 TABLETS BY MOUTH DAILY active Not Available Not Available No t Available penicillin V potassium 500 mg tablet TAKE 1 TABLET BY MOUTH FOUR TIMES DAILY UNTIL ALL TAKEN 08/29 completed Not Available Not Available Not Available benzonatate 100 mg capsule TAKE 1 CAPSULE BY MOUTH THREE TIMES DAILY FOR 10 DAYS active Not Available Not Available No t Available norethindro ne acetate 5 mg tablet active Not Available Not Available Not Available methylpredn isolone 4 mg tablets in a dose pack FOLLOW PACKAGE DIRECTION S active Not Available Not Available No t Available hydroxyzine HCl 10 mg tablet TAKE 1 TO 2 TABLETS BY MOUTH TWICE DAILY NEEDED FOR SEVERE ANXIETY active Not Available Not Available No t Available sertraline 50 mg tablet TAKE 1 TABLET BY MOUTH DAILY 08/29 completed Not Available Not Available Not Available dextroamphe tamine-amph etamine 5 mg tablet TAKE 1 TABLET BY MOUTH EVERY DAY IN THE AFTERNOON FROM 4PM active Not Available Not Available No t Available prazosin 2 mg capsule TAKE 1 CAPSULE BY MOUTH DAILY AT BEDTIME active Not Available Not Available No t Available escitalopra m 10 mg tablet TAKE 1 TABLET BY MOUTH DAILY FOR 2 WEEKS THEN STOP 08/29 completed Not Available Not Available Not Available escitalopra m 20 mg tablet TAKE 1 TABLET BY MOUTH DAILY 08/29 completed Not Available Not Available Not Available lisdexamfet amine 60 mg capsule TAKE 1 CAPSULE BY MOUTH DAILY active Not Available Not Available No t Available Slynd 4 mg (28) tablet active Not Available Not Available Not Available BinaxNOW COVID-19 Ag Self Test kit TEST DIRECTED TODAY active Not Available Not Available No t Available Vitals Date Recorded Body temperature Body weight Body mass index (BMI) [Percentile] Per age and sex Body mass index (BMI) Body height Systolic And Diastolic Provider Name and Address Organization Details Last Updated DateTime 2 98.1 [degF] 593103. 58 g 99 % 40.4 kg/m2 159.39 cm 124/62 mm[Hg] Zoie Patterson RN [facility] 17:06:38 Date Recorded Body temperature Body weight Provider N geovany and Address Organization Details Last Updated DateTime 10/17/2022 98.8 [degF] 673127.71 g Stefanie Barnett MA [facility] 10/17/2022 11:17:57 Social History None recorded. Functional Status None recorded. Mental Status None recorded. Family History Relationship Description Onset Age of this Age Resolved Age Notes LastModified by Organization Details LastModified Time Paternal Grandmother Malignant neoplasm of lung aminerrn Not available 2021 11:22:04 Paternal Grandfather Diabetes mellitus aminerrn Not available 2021 11:22:34 Medical History No medical history recorded. Gynecological HistoryNo gynecological history recorded. Obstetrics History GPAL:G 0 P 0 0 0 0 Immunizations Vaccine Type Date Status Note Provider Nam e and Address Organization Details Recorded Time Hep B, unspecified formulation 4 completed Zoie Patterson RN null, [facility] 08/29/2022 13:05:50 Hep B, unspecified formulation 5 completed Zoie Patterson RN null, [facility] 08/29/2022 13:05:57 Hep B, unspecified formulation 6 completed Zoie Patterson RN null, [facility] 08/29/2022 13:06:05 DTaP, unspecified formulation 0 completed Zoie Patterson RN null, [facility] 08/29/2022 13:07:03 DTaP, unspecified formulation 4 [email or web address] Patterson RN null, [facility] 08/29/2022 13:07:11 DTaP, unspecified formulation 5 completed Zoie Patterson, [place], [place] [facility] 08/29/2022 13:07:18 polio, unspecified formulation 0 completed Zoie [place] [facility] 08/29/2022 13:07:31 polio, unspecified formulation 4 completed Zoie [place] [facility] 08/29/2022 13:07:38 polio, unspecified formulation 5 completed Zoie [place] [facility] 08/29/2022 13:07:45 MMR 0 completed Zoie [place] [facility] 08/29/2022 13:08:01 MMRV 4 completed Zoie [place] [facility] 08/29/2022 13:08:14 varicella 0 completed Zoie Patterson[place] [facility] 08/29/2022 13:08:26 Hep A, unspecified formulation 9 completed Zoie Patterson, [place] [facility] 08/29/2022 13:09:26 Hep A, unspecified formulation 0 completed Zoie Patterson[place] [facility] 08/29/2022 13:09:34 meningococcal ACWY, unspecified formulation 6 completed Zoie [place] [facility] 08/29/2022 13:09:50 meningococcal ACWY, unspecified formulation 1 completed Zoie Patterson[place] [facility] 08/29/2022 13:09:56 Tdap 6 completed Zoie Patterson[place] [facility] 08/29/2022 13:10:16 HPV, unspecified formulation 9 completed Zoie Patterson[place] [facility] 08/29/2022 13:10:28 HPV, unspecified formulation 0 completed Zoie Patterson RN null, [place] - [facility] 08/29/2022 13:10:34 influenza, unspecified formulation 8 completed Zoie Patterson RN [place], [place] [facility] 08/29/2022 13:10:49 influenza, unspecified formulation 9 completed Zoie [place] RN [place] [facility] 08/29/2022 13:10:55 influenza, unspecified formulation 0 completed Zoie [place] RN [place] [facility] 08/29/2022 13:11:03 influenza, unspecified formulation 1 completed Zoie Patterson RN [place] [facility] 08/29/2022 13:11:47 Influenza, split virus, quadrivalent, preservative 2 completed Zoie Patterson RN [place], [place] [facility] 08/30/2022 18:07:09 Influenza, split virus, quadrivalent, PF 3 completed Bonita Leos MA null, [place] [facility] 08/27/2023 16:50:04 Past Encounters Encounter ID Performer Location Encounter Start Date Encounter Closed Date Diagnosis/Indication Diagnosis SNOMED-CT Code Diagnosis ICD10 Code Diagnosis IMO Codes Diagnosis Note [id number] HA CADE NP [facility] [address] [place] [address] 08/29/2022 16:43:09 08/31/2022 13:29:19 Well child visit 857689739 Z00.129 Obesity 568593867 E66.9 Discussed diet and excercise. [id number] MICAH FREEMAN MD [facility] [address] [place] [address] 10/17/2022 11:05:40 10/18/2022 16:00:36 Upper respiratory infection 08882946 J06.9 [id number] Mallory Gunn MD [facility] [address] [place] [address] 08/27/2023 12:41:23 08/29/2023 12:21:59 Active or passive immunization 323918305 Z23 Health Concerns Section Related Observation LastModified by Organization Detai ls LastModified Time None Recorded Concern Status LastModified by Organization Details LastModified Time None Recorded Advance Directives Directive None Recorded Payers Insurance Date Sequence Insurance Name Policy Number Policy Lewis Covered Member ID Lewis Member ID Guarantor Name 12/12/2024 1 [place] 112 Saúl Duff [id number] Saúl Duff Notes Date Note Type Note Provider Name and Address Organization Details Recorded Time 08/29/2022 text/html well childReport ed by Patient HA CADE NP Attn: [facility], [place], [address], [place] 08/29/2022 17:53:51 10/17/2022 text/html Lorena Duff is a 17 year old F presenting for cold symptoms. Lorena has been dealing with cough and congestion for 6 days. During that time she has had no fevers but has had decreased energy, poor sleep, and decreased appetite. Patient denies fevers, N/V/D. Sick contacts: sister ill after her, coworkers have been sick with COVID. Home COVID test was negative MICAH FREEMAN MD Attn: [facility] [facility], [place], [address], [place] [facility] 10/17/2022 13:12:40 OBGyn Episode No OBEpisode recorded.
--- NOTE | 2025-10-26 21:16 | PC.NURSE ---
patient presents to desk stating she was going to leave. ambulatory with steady gait. alert and oriented x4.
--- OUTSIDE RECORDS SUMMARY | 2025-10-26 23:02 | XMS_ITS | Encounter Summary ---
Author Organization [facility] Healthcare Address [address] [place] [address] Care Team Providers Care Auto Inspector Name Role Phone Liz Hill Primary Care Provider [phone] Reason for Visit * Reason Onset Date Comments Dizziness 10/26/2025 Encounter Details Date Type Department Care Team (Late st Contact Info) Description 10/26/2025 Nurse Triage [facility] Medical [facility] Family Medicine [address] [address] Liz Hill PA [address] [address] Social History Tobacco Use Types [...] on file Legal Sex Female 10:52 AM INTELLIGENCE RESEARCH SPECIALIST Gender Identity Not on file Sexual Orientation Not on file documented as of this encounter Miscellaneous Notes * Telephone Encounter - Oksana Cotter LPN - 10/26/2025 2:38 PM CST Per chart, patient scheduled LLIGENCE RESEARCH SPECIALIST * Telephone Encounter - Sabina Coleman RN [...] lasted less than 24 hours.) Protocols Used Juoimqsl-Dmhoy-[place] Zcsrtovpy-Mdhlf-MV LLIGENCE RESEARCH SPECIALIST * Telephone Encounter - Sabina Coleman RN - 10/26/2025 8:42 AM CST Regarding: lightheadedness, dizziness, vomiting and nausea ----- Message from Carly Carroll sent at 10/26/2025 8:33 AM INTELLIGENCE RESEARCH SPECIALIST ----- Symptom Based Call Chief Complaint(s): lightheadedness, dizziness, vomiting and nausea Duration: 12 days What type of symptom(s) is the patient experiencing? Red Flag. Is the patient concerned they are experiencing a medical emergency requiring an ambulance? No Additional Comments: Mom Ela reports patient having lightheadedness, dizziness, vomiting and nausea for 12 days. [facility], then [facility] to [facility], then to [facility] 10/25/25 was given Zofran. Patient still experiencing symptoms vomiting all through the night and morning. Does message need to be routed? Yes-Action Needed LLIGENCE RESEARCH SPECIALIST documented in this encounter Plan of Treatment Upcoming Encounters Date Type Department Care Team (Late st Contact Info) Description 10/28/2025 9:30 AM INTELLIGENCE RESEARCH SPECIALIST Office Visit [facility] Family Medicine [address] [place] [phone] Samara Clancy NP [address] [facility] [address] [place], [place] [phone] documented as of this encounter Visit Diagnoses Not on filedocumented in this encounter Care Teams Auto Inspector Relationship Specialty Start Date End Date Liz Hill PA [address] [place] [phone] PCP - General Family Medicine 08/18/24 documented as of this encounter
--- OUTSIDE RECORDS SUMMARY | 2025-10-26 23:02 | XMS_ITS | Encounter Summary ---
Author Organization [facility] Address [address] [place] [address] Care Team Providers Care Physician Neonatology Name Role Phone Ad Alvarado MD, Joe Primary Care Provider [phone] Encounter Details Date Type Department Care Team (Latest Contact Info) Description 10/25/2025 Travel Social History Tobacco Use Types Packs/Day Years Used Date Smoking Tobacco: Never Smokeless Tobacco: Never Alcohol Use Standard Drinks/Week Comments Not Currently 0 (1 standard drink = 0.6 oz pur e alcohol) Comments No Sex and Gender Information Value Date Recorded Sex Assigned at Female 10/25/2025 2:23 PM BINDERY WORKER Legal Sex Female 7:52 PM CDT Gender Identity Not on file Sexual Orientation Not on file documented as of this encounter Functional Status * Calculated C-SSRS Risk Score (Lifetime/Recent) Answer Date of Assessment Author Status No Risk Indicated 10/25/2025 12:52 PM BINDERY WORKER Sa ra Светлана Herr RN Active * Dickinson Suicide Severity Rating Scale (Screener/Recent Self-Report) Question Answer Date of Assessment Author Status 1. Wish to be (Past 1 Month) No 10/25/2025 12:52 PM BINDERY WORKER Kena Herr RN Act hung 2. Non-Specific Active Suicidal Thoughts (Past 1 Month) No 10/25/2025 12:52 PM BINDERY WORKER Kena Herr RN Act hung 6. Suicidal Behavior (Lifetime) No 10/25/2025 12:52 PM BINDERY WORKER Kena Herr RN Act hung documented as of this encounter Plan of Treatment Not on file documented as of this encounter Visit Diagnoses Not on filedocumented in this encounter Care Teams Physician Neonatology Relationship Specialty Start Date End Date Joe Duong MD [address] [place] [address] PCP - General PEDIATRICS 06/23/21 documented as of this encounter
--- OUTSIDE RECORDS SUMMARY | 2025-10-26 23:02 | XMS_ITS | Clinical Summary ---
Author Organization [facility] Address [address] [place] [address] Care Team Providers Care Embosser Operator Name Role Phone Liz Hill Primary Care Provider [phone] Allergies Active Allergy Reactions Criticality Noted Date [...] Department Care Team Description 10/26/2025 Nurse Triage [facility] Medical [facility] Family Medicine [address] [address] Liz Hill PA from Last [...] on file Legal Sex Female 10:52 AM SEISMIC OBSERVER Gender Identity Not on file Sexual Orientation [...] st Contact Info) Description 10/28/2025 9:30 AM SEISMIC OBSERVER Office Visit [facility] Family Medicine [address] [phone] Samara Clancy, IMMUNOHEMATOLOGIST [address] [address] Health Maintenance Due Date Last Done Comments [...] patient's age to complete this topic Insurance [facility] [place] [address] [facility] [place] [facility] [place] [address] Care Teams Embosser Operator Relationship Specialty Start Date End Date Liz Hill PA [address] [place] [address] PCP - General Family Medicine 08/18/24
--- OUTSIDE RECORDS SUMMARY | 2025-10-26 23:02 | XMS_ITS | Clinical Summary ---
Author Organization [facility] Address [address] [place] [id number] Care Team Providers Care Personnel Counselor Name Role Phone Ad Alvarado MD, [place] Primary Care Provider Allergies No known active allergies Medications escitalopram 20 MG tablet Take 20 mg by mouth daily. 04/20/2021 Active VYVANSE 50 MG capsule 06/08/2021 Active norethindrone 5 MG tablet Take 5 mg by mouth daily. 05/17/2021 Active metoclopramide (REGLAN) 10 MG tablet Take 1 tablet (10 mg total) by mouth 3 (three) times daily as needed (nausea/vom iting). 30 tablet 10/25/2025 Active Encounters Date Type Department Care Team Description 10/25/2025 2:01 PM GLOVE BRUSHER - 10/25/2025 4:12 PM [facility] Emergency [facility] [place] [address] Elías Smith MD Vomiting Discharge Disposition: Home or Self Care (Routine Discharge) 10/25/2025 Travel from Last 3 Months Family History Medical History Relation Comments No [...] Sex Assigned at Female 10/25/2025 2:23 PM GLOVE BRUSHER Legal Sex Female 7:52 PM CDT Gender Identity Not on file Sexual Orientation Not on file Last Filed Vital Signs Vital Sign Reading Time Taken Comments Blood Pressure 134/90 10/25/2025 4:00 PM GLOVE BRUSHER Pulse 86 10/25/2025 4:00 PM GLOVE BRUSHER Temperature 36.8 C (98.3 F) 10/25/2025 12:50 PM GLOVE BRUSHER Respiratory Rate 21 10/25/2025 4:00 PM [facility] BRUSHER Oxygen Saturation 97% 10/25/2025 4:00 PM GLOVE BRUSHER Inhaled Oxygen Concentration - - Weight 104.9 kg (231 lb 4.2 oz) 025 12:50 PM GLOVE BRUSHER Height 157.5 cm (5' 2) 10/25/2025 12:5 0 PM GLOVE BRUSHER Body Mass Index 42.3 10/25/2025 12:50 PM GLOVE BRUSHER Plan of Treatment Health Maintenance Due Date Last Done Comments Annual Physical 2008 Meningococcal B Vaccine (1 of 2 - Standard) 2021 Hepatitis C 2023 COVID-19 Vaccine (3 - season) 2025 05/23/2021, 04/14/2021 Influenza Adult (#1) 2025 08/18/2024, 08/27/2023, 08/30/2022, Additional history exists DTaP, Tdap and Td Vaccines (5 - Td or Tdap) 05/23/2026 05/23/2016, 05/17/2015, 06/27/2014, Additional history exists Hepatitis B Vaccines Completed 05/23/2016, 05/17/2015, 06/27/2014 HPV Vaccines Completed 07/20/2020, 05/30/2019 Hepatitis A Vaccines Completed 07/20/2020, 05/30/20 19 Meningococcal Vaccine Aged Out 09/02/2021, 016 No longer eligible based on patient's age to complete this topic Pneumococcal Vaccine: Pediatrics (0 to 5 Years) and At-Risk Patients (6 to 49 Years) Aged Out No longer eligible based on patient's age to complete this topic RSV Immunizations Under 20 Months Aged Out No longer eligible based on patient's age to complete this topic Procedures Procedure Name Priority Date/Time Associated Diagnosis Comments CT ABD+PEL W CON STAT 10/25/2025 3:04 PM GLOVE BRUSHER POCT URINE (BACK OFFICE) STAT 10/25/2025 2:37 PM GLOVE BRUSHER URINALYSIS STAT 10/25/2025 2:26 PM GLOVE BRUSHER TROPONIN, QUANT STAT 10/25/2025 2:25 PM GLOVE BRUSHER LIPASE STAT 10/25/2025 2:25 PM GLOVE BRUSHER COMPREHENSIVE METABOLIC PANEL STAT 10/25/2025 2:25 PM GLOVE BRUSHER HC CBC AUTO W/AUTO DIFF STAT 10/25/2025 2:25 PM GLOVE BRUSHER ECG 12-LEAD Routine 10/25/2025 2:08 PM GLOVE BRUSHER from Last 3 Months Results * CT ABD+PEL W IV CON ONLY (10/25/2025 3:04 PM GLOVE BRUSHER) Anatomical Region Laterality Modality Abdomen Computed Tomogra phy 10/25/2025 3:39 PM GLOVE BRUSHER Impressions 10/25/2025 3:47 PM GLOVE BRUSHER Impression: 1. There is an appendicolith in [...] 10/25/2025 3:39 PM Narrative 10/25/2025 3:47 PM GLOVE [facility] [address] [place], [place] [address] CT abdomen and pelvis with contrast: 10/25/2025 [...] Procedure Note Clifford Jimenez MD - 10/25/[address] [address] [address] abdomen and pelvis with contrast: 10/25/2025 [...] By: Clifford Jimenez MD, 10/25/2025 3:39 PM us Aaron Sánchez [employer] CT Final Result * POCT urine (10/25/2025 2:37 PM GLOVE BRUSHER) URINE HCG TEST NEGATIVE NEGATIVE Internal Control: VALID VALID URINE URINE SPECIMEN OBTAINED BY CLEAN CATCH PROCEDURE / Unknown 10/25/2025 2:37 PM GLOVE BRUSHER us Elías Smith MD POINT OF CARE TEST ORDE RABLES Final Result * (ABNORMAL) URINALYSIS (10/25/2025 2:26 PM GLOVE BRUSHER) SPECIMEN TYPE URINE CLEAN CATCH 10/25/2025 2:26 PM GLOVE BRUSHER [facility] COLOR (U) YELLOW 10/25/2025 3:04 PM GLOVE BRUSHER [facility] TRANSPARENCY CLEAR 10/25/2025 3:04 PM GLOVE BRUSHER [facility] SPECIFIC GRAVITY (U) 1.029 1.001 - 1.030 10/25/2025 3:04 PM GLOVE BRUSHER [facility] U PH 6.5 5.0 - 9.0 10/25/2025 3:[address] [facility] LEUKOCYTES (U) NEGATIVE NEGATIVE 10/25/2025 3:[address] [facility] NITRITES NEGATIVE NEGATIVE 10/25/2025 3:[address] [facility] PROTEIN RANDOM (U) 30(H) <30 MG/DL 10/25/2025 3:04 PM GLOVE BRUSHER [facility] GLUCOSE (U) NORMAL NORMAL MG/DL 10/25/2025 3:04 PM GLOVE BRUSHER [facility] KETONES MG/DL (U) 10(A) NEGATIVE MG/DL 10/25/2025 3:04 PM GLOVE BRUSHER [facility] UROBILINOGEN NORMAL NORMAL MG/DL 10/25/2025 3:04 PM GLOVE BRUSHER [facility] BILIRUBIN (U) NEGATIVE NEGATIVE MG/DL 10/25/2025 3:04 PM GLOVE BRUSHER [facility] BLOOD (U) NEGATIVE NEGATIVE 10/25/2025 3:04 PM GLOVE BRUSHER [facility] MUCUS FEW /LPF 10/25/2025 3:04 PM GLOVE BRUSHER [facility] WBC/HPF 3 <6 /HPF 10/25/2025 3:04 PM GLOVE BRUSHER [facility] RBC/HPF 4 <6 /HPF 10/25/2025 3:04 PM GLOVE BRUSHER [facility] BACTERIA (U) RARE(A) NONE /HPF 10/25/2025 3:04 PM GLOVE BRUSHER [facility] SQUAMOUS EPITHELIALS RARE /HPF 10/25/2025 3:04 PM GLOVE BRUSHER [facility] URINE URINE SPECIMEN OBTAINED BY CLEAN CATCH PROCEDURE / Unknown 10/25/2025 2:26 PM GLOVE BRUSHER us Aaron Sánchez [employer] SUPER[employer]OR URINE ORDERABLES Final Result [facility] [address] [place] [address], [place] [phone] * TROPONIN, QUANT (10/25/2025 2:25 PM GLOVE BRUSHER) TROPONIN I HIGH SENSITIVITY <3 <54 ng/L 10/25/2025 3:12 PM GLOVE BRUSHER [facility] Comment: HIGH DOSES OF BIOTIN, TROPONIN-SPECIFIC AUTOANTIBODIES, AND ANTIBODY THERAPY CONTAINING HAMA MAY INTERFERE WITH THIS TEST RESULT. CORRELATION TO CLINICAL HISTORY AND PRESENTATION RECOMMENDED. BLOOD VENOUS BLOOD SPECIMEN / Unknown 10/25/2025 2:25 PM [facility] Aaron Sánchez NP LABORATORY Final Result Performing Organization Address City/[facility]/ZIP Co de Phone Number [facility] [address] [place] [address], [place] [phone] * LIPASE (10/25/2025 2:25 PM GLOVE BRUSHER) Pathologist [facility] LIPASE 18 13 - 75 UNITS/L 10/25/2025 3:44 PM GLOVE BRUSHER [facility] BLOOD VENOUS BLOOD SPECIMEN / Unknown 10/25/2025 2:25 PM [facility] BRUSHER Aaron Sánchez [employer] CLE[employer] SUPERVISOR LABORATORY Final Result Performing Organization Address City/[facility] Co de Phone Number [facility] [address] [place] [address], [place] [phone] * (ABNORMAL) COMPREHENSIVE METABOLIC PANEL (10/25/2025 2:25 PM GLOVE BRUSHER) GLUCOSE 105(H) 70 - 99 MG/DL 10/25/2025 3:44 PM GLOVE BRUSHER [facility] BUN 9 7 - 18 MG/DL 10/25/2025 3:44 PM GLOVE BRUSHER [facility] CREATININE S/P/B 0.88 0.55 - 1.02 MG/DL 10/25/2025 3:44 PM GLOVE BRUSHER [facility] SODIUM S/P/B 142 136 - 145 MMOL/L 10/25/2025 3:44 PM GLOVE BRUSHER [facility] POTASSIUM S/P/B 3.3(L) 3.5 - 5.1 MMOL/L 10/25/2025 3:[address] [facility] CHLORIDE S/P/B 110 97 - 115 MMOL/L 10/25/2025 3:[address] [facility] CO2 23.5 21 - 32 MMOL/L 10/25/2025 3:[address] [facility] CALCIUM S/P/B 9.5 8.5 - 10.1 MG/DL 10/25/2025 3:[address] [facility] BILIRUBIN TOTAL S/P/B 0.8 0.2 - 1.2 MG/DL 10/25/2025 3:[address] [facility] Comment: THIS ASSAY IS NOT RECOMMENDED FOR PATIENTS UNDERGOING TREATMENT WITH ELTROMBOPAG DUE TO THE POTENTIAL FOR FALSELY ELEVATED RESULTS. TOTAL PROTEIN S/P/B 8.9(H) 6.4 - 8.2 G/DL 10/25/2025 3:[address] [facility] ALBUMIN S/P/B 5.1(H) 3.4 - 5.0 G/DL 10/25/2025 3:[address] [facility] AST 14(L) 15 - 37 U/L 10/25/2025 3:[address] [facility] ALT 21 14 - 55 U/L 10/25/2025 3:[address] [facility] ALKALINE PHOSPHATASE S/P/B 71 50 - 136 U/L 10/25/2025 3:[address] [facility] ANION GAP 8.5 2 - 10 MMOL/L 10/25/2025 3:[address] [facility] BUN CREATININE RATIO 10.2 6 - 26 10/25/2025 3:[address] [facility] A/G RATIO 1.3 1.0 - 2.0 RATIO 10/25/2025 3:44 PM GLOVE BRUSHER [facility] GFR ESTIMATE >90 >90 ML/MIN/1.7 3 M2 10/25/2025 3:[address] [facility] Comment: NOTE: eGFR is not calculated for patients <18 years of age or gender unknown. This is an estimated GFR calculation using the new CKD EPI creatinine equation without race and so does not require a correction factor for race. This estimated GFR should not be used for calculating drug doses. BLOOD VENOUS BLOOD SPECIMEN / Unknown 10/25/2025 2:25 PM [facility] Aaron Sánchez NP LABORATORY Final Result [facility] [address] [place] [address], [place] [phone] * (ABNORMAL) CBC W/DIFF AUTOMATED (10/25/2025 2:25 PM [facility]OVE BRUSHER) WBC 12.45 4.5 - 13.0 x10'3/uL 10/25/2025 3:03 PM GLOVE BRUSHER [facility] RBC 4.79 4.20 - 5.40 x10'6/uL 10/25/2025 3:[address] [facility] HGB 12.7 12.0 - 16.0 G/DL 10/25/2025 3:[address] [facility] HCT 38.4 38.0 - 48.0 % 10/25/2025 3:03 PM GLOVE BRUSHER [facility] MCV 80.2(L) 81.0 - 99.0 FL 10/25/2025 3:[address] [facility] MCH 26.5(L) 27.0 - 31.0 PG 10/25/2025 3:[address] [facility] MCHC 33.1 32.0 - 36.0 G/DL 10/25/2025 3:[address] [facility] RDW 12.9 11.5 - 14.5 % 10/25/2025 3:[address] [facility] PLT 435(H) 130 - 400 x10'3/uL 10/25/2025 3:[address] [facility] MPV 10.9 9.3 - 12.2 FL 10/25/2025 3:[address] [facility] DIFFERENTIAL TYPE AUTOMATED DIFFERENTIAL 10/25/2025 3:[address] [facility] NEUTROPHILS % 82.0 % 10/25/2025 3:[address] [facility] LYMPHOCYTES % 13.4 % 10/25/2025 3:[address] [facility] MONOCYTES % 3.7 % 10/25/2025 3:[address] [facility] EOSINOPHILS 0.0 % 10/25/2025 3:[address] [facility] BASOPHILS 0.3 % 10/25/2025 3:[address] [facility] IMMATURE GRANS % 0.6 % 10/25/20 3:[address] [facility] ABS. NEUTROPHILS 10.20(H) 1.80 - 8.00 x10'3/uL 10/25/2025 3:[address] [facility] ABS. LYMPHOCYTES 1.67 1.20 - 5.20 x10'3/uL 10/25/2025 3:[address] [facility] ABS. MONOCYTES 0.46 0.24 - 0.86 x10'3/uL 10/25/2025 3:[address] [facility] ABS. EOSINOPHILS 0.00(L) 0.04 - 0.36 x10'3/uL 10/25/2025 3:03 PM GLOVE BRUSHER [facility] ABS. BASOPHILS 0.04 0.01 - 0.08 x10'3/uL 10/25/2025 3:03 PM GLOVE BRUSHER [facility] ABS. IMMATURE GRANULOCYTES 0.08 0.00 - 0.49 x10'3/uL 10/25/2025 3:03 PM GL[facility] BRUS[facility] BLOOD VENOUS BLOOD SPECIMEN / Unknown 10/25/2025 2:25 PM [facility] Aaron Sánchez [employer] CLE[employer] SUPERVISOR LABORATORY Final Result [facility] [address] [place] [address], * ECG 12 lead (10/25/2025 2:08 PM GLOVE BRUSHER) ECG QT 419 [facility] ECG QTC 431 [facility] 10/25/2025 2:08 PM [facility] BRUSHER Narrative [facility] - 10/25/2025 2:12 PM GLOVE BRUSHER [address] Test Date: 2025-10-25 Pat Name: LORENA SINGH Department: 41 Room: Gender: Female Manager Employee Benefits: [id number] : 2005 Requested By: AARON SÁNCHEZ Order Number: [id number] Reading MD: Measurements Intervals [place] Rate: 63 P: 34 NV: 130 QRS: 55 QRSD: 121 T: 25 QT: 419 QTc: 431 Interpretive Statements SINUS RHYTHM No previous ECG available for comparison Other ischemic changes, not STEMI Preliminary EKG Interpretation by Elías Smith M.D. Procedure Note , Generic Conversion, - 10/25/[address] [facility] [address] [place] Test Date: 2025-10-25 Pat Name: LORENAJOSE JUAN [place] Department: 41 Room: Gender: Female Manager Employee Benefits: [id number] : 2005 Requested By: AARON SÁNCHEZ Order Number: [id number] Reading MD: Measurements Intervals [place] Rate: 63 P: 34 NV: 130 QRS: 55 QRSD: 121 T: 25 QT: 419 QTc: 431 Interpretive Statements SINUS RHYTHM No previous ECG available for comparison Other ischemic changes, not STEMI Preliminary EKG Interpretation by Elías Smith M.D. us Aaron Sánchez [employer] SUPERVISOR ECG ORDERABLES Final Result [facility] RAD from Last [address] [place] [id number] [facility] Care Teams Personnel Counselor Relationship Specialty Start Date End Date Joe Duong MD [address] [place] [address] PCP - General PEDIATRICS 06/23/21
== END 2025-10-26 23:25 | disposition left against medical advice (07) ==
LOC: ANHED 22:59
PROVIDERS: PCP Family Medicine
DX: Z53.21 Procedure and treatment not carried out due to patient leaving prior to being seen by health care provider (principal)
CPT/HCPCS: 99199